=== PATIENT | male | born 1990 | race Caucasian/White ===

== ENCOUNTER 2019-09-16 17:45 | Emergency (ER) | payer OTHER ==
[2019-09-16] MEDS ORDERED: DIPHTH,PERTUSS(ACELL),TET 0.5 ML DISP.SYRIN IM ONE ×2 (18:02→19:38)
--- NOTE | 2019-09-16 18:02 | PDOC ---
Rapid Medical Evaluation Time Seen by Provider: 09/16/19 17:58 Medical Evaluation: 09/16/19 17:58 I have performed a brief in-person evaluation of this patient. The patient presents with a chief complaint of: L forearm laceration sustained with a saw 20 mns ago. Last tetanus status unknown Pertinent physical exam findings: Deep 7-8cm irregularly shaped laceration I have ordered the following: Tetanus vaccine The patient will proceed to the ED for further evaluation. Discharge Disposition - Diagnosis Laceration - Referrals - Patient Instructions - Post Discharge Activity
[2019-09-16 18:08] VITALS: BP 124/72; PULSE 87; TEMP 98.8; BMI 21.6
--- NOTE | 2019-09-16 18:33 | PDOC ---
History of Present Illness - General Chief Complaint: Laceration Stated Complaint: ARM LACERATION Time Seen by Provider: 09/16/19 17:58 - History of Present Illness Initial Comments: 09/16/19 18:32 CHIEF COMPLAINT: laceration HISTORY OF PRESENT ILLNESS: 29 yo M with no PMH presents to ED with laceration to L forearm. Patient reports he was using a saw to cut a small bojorquez and accidentally cut his arm. He is unsure when his last tetanus shot was. Patient is certain he received all his childhood vaccines as a child including entire Tdap series, but is uncertain when his most recent vaccination was. No recent travel or sick contacts. PAST MEDICAL HISTORY: Denies past medical history FAMILY HISTORY: Denies SOCIAL HISTORY: Denies tobacco, alcohol, illicit drug use. SURGICAL HISTORY: Denies ALLERGIES: No known drug allergies REVIEW OF SYSTEMS General/Constitutional: Denies fever or chills. Denies weakness, weight change. HEENT: Denies change in vision. Denies ear pain or discharge. Denies sore throat. Cardiovascular: Denies chest pain or shortness of breath. Respiratory: Denies cough, wheezing, or hemoptysis. Gastrointestinal: Denies nausea, vomiting, diarrhea or constipation. Denies rectal bleeding. Genitourinary: Denies dysuria, frequency, or change in urination. Musculoskeletal: Denies joint or muscle swelling or pain. Denies neck or back pain. Skin: Laceration to L forearm. Neurologic: Denies headache, vertigo, loss of consciousness, or loss of sensation. Psychiatric: Denies depression or anxiety. PHYSICAL EXAM General Appearance: Well-appearing, appropriately dressed. No apparent distress , no intoxication. HEENT: EOMI, PERRLA, normal ENT inspection, normal voice, TMs normal, pharynx normal. No conjunctival pallor. No photophobia, scleral icterus. Neck: Supple. Trachea midline. No tenderness, rigidity, carotid bruit, stridor , lymphadenopathy, or thyromegaly. Respiratory/Chest: Lungs CTAB. No shortness of breath, chest tenderness, respiratory distress, accessory muscle use. No crackles, rales, rhonchi, stridor , wheezing, dullness Cardiovascular: RRR. S1, S2. No JVD, murmur, bradycardia, tachycardia. Vascular Pulses: Dorsalis-Pedis (R): 2+, Dorsalis-Pedis (L): 2+ Gastrointestinal/Abdominal: Normal bowel sounds. Abdomen soft, non-distended. No tenderness or rebound tenderness. No organomegaly, pulsatile mass, guarding , hernia, hepatomegaly, splenomegaly. Lymphatic: No adenopathy, tenderness. Musculoskeletal/Extremities: 12 cm jagged laceration to L forearm deep to muscle. No tendon involvement. Neurovascularly intact, radial pulses 2+. Full ROM to wrist and fingers of L hand. FROM of all other extremities, normal capillary refill. Pelvis Stable. No CVA tenderness. No tenderness to extremities, pedal edema, swelling, erythema or deformity. Integumentary: Appropriate color, dry, warm. No cyanosis, erythema, jaundice or rash Neurologic: nuclear physician II-XII intact. Fully oriented, alert. Appropriate mood/affect. Motor strength 5/5. No appreciable EOM palsy, facial droop or sensory deficit. Past History - Past Medical History Allergies/Adverse Reactions: Allergies Allergy/AdvReac Type Severity Reaction Status Date / Time No Known Allergies Allergy Verified 09/16/19 17:58 Home Medications: Ambulatory Orders Cephalexin [Keflex] 500 mg PO BID #20 capsule 09/16/19 COPD: No - Psycho Social/Smoking Cessation Hx Smoking History: Never smoked *Physical Exam - Vital Signs Last Vital Signs Temp Pulse Resp BP Pulse Ox 98.8 F 87 18 124/72 97 09/16/19 17:59 09/16/19 17:59 09/16/19 17:59 09/16/19 17:59 09/16/19 17:59 Medical Decision Making - Medical Decision Making 09/16/19 19:19 29 yo M with no PMH presents to ED with laceration to L forearm. -tdap -keflex Lac repair performed by resident MD [facility]. Patient tolerated well. 09/16/19 19:47 Advised pt of post lac repair care instructions and of signs and symptoms for return to ER; patient verbalized understanding and agrees to plan. Discharge - Discharge Information Problems reviewed: Yes Clinical Impression/Diagnosis: Laceration Condition: Good Disposition: HOME - Admission No - Additional Discharge Information Prescriptions: Cephalexin [Keflex] 500 mg PO BID #20 capsule - Follow up/Referral - Patient Discharge Instructions Patient Printed Discharge Instructions: DI for Laceration Repair Additional Instructions: Please keep the area of your laceration clean and dry for the next 24 hours. Return in 10-14 days for suture removal. If you develop any redness, swelling, streaking, or warmth to the site of the wound, or you experience fever, chills, vomiting, or diarrhea, please return to the ER immediately. - Post Discharge Activity
== END 2019-09-16 19:55 | disposition home or self-care (01) ==
LOC: JER 17:45
PROC: 3E0234Z Introduction of Serum, Toxoid and Vaccine into Muscle, Percutaneous Approach (ICD-10-PCS; principal; 2019-09-16)
PROC: 0JQH0ZZ Repair Left Lower Arm Subcutaneous Tissue and Fascia, Open Approach (ICD-10-PCS; 2019-09-16)
DX: S51.812A Laceration without foreign body of left forearm, initial encounter (principal); W27.0XXA Contact with workbench tool, initial encounter; Y93.H2 Activity, gardening and landscaping; Y92.89 Other specified places as the place of occurrence of the external cause; Y99.8 Other external cause status
CPT/HCPCS: 12034; 90471; 90715; 99282-25

== ENCOUNTER 2024-03-18 10:08 | Emergency (ER) | payer OTHER ==
[2024-03-18 10:24] VITALS: RESP 18; BMI 23.3
[2024-03-18] MEDS: SODIUM CHLORIDE 0.9% 500 ML INFUS.BAG IV ONE (12:12)
[2024-03-18] MEDS ORDERED: AMPICILLIN NA/SULBACTAM NA 3 GM/100 ML BAG IVPB ONE (12:16)
[2024-03-18] MEDS: AMPICILLIN NA/SULBACTAM NA 3 GM in DEXTROSE 5%-WATER 100 ML IVPB ONE (12:21)
[2024-03-18 12:23] LABS: BASO % 0.4 % (0-2.0); EOS % 0.7 % (0-4.5); HEMATOCRIT 45.3 % (35.4-49); HEMOGLOBIN 15.7 GM/dL (11.7-16.9); LYMPH % 11.4 % (8-40); MCH 28.1 pg (25.7-33.7); MCHC 34.6 g/dl (32.0-35.9); MEAN CELL VOLUME 81.3 fl (80-96); MEAN PLT VOLUME 9.1 fl (7.5-11.1); MONO % 3.8 % (3.8-10.2); NEUT % 83.7 % (42.8-82.8); PLATELET COUNT 203 10^3/uL (134-434); RBC 5.58 M/mm3 (4.00-5.60); WHITE BLOOD COUNT 10.9 K/mm3 (4.0-10.0)
[2024-03-18] MEDS ORDERED: DIPHTH,PERTUSS(ACELL),TET 0.5 ML DISP.SYRIN IM ONE (12:28)
[2024-03-18] MEDS: DIPHTH,PERTUSS(ACELL),TET 0.5 ML DISP.SYRIN IM ONE (12:32)
[2024-03-18 12:39] LABS: POTASSIUM 4.3 mmol/L (3.5-5.1)
[2024-03-18 12:41] LABS: CALCIUM 8.8 mg/dL (8.5-10.1)
[2024-03-18 12:42] LABS: ALBUMIN 4.2 g/dl (3.4-5.0); BLOOD UREA NITROGEN 15.4 mg/dL (7-18)
[2024-03-18 12:45] LABS: CREATININE 0.7 mg/dL (0.55-1.3)
[2024-03-18 12:46] LABS: TOT PROT 7.5 g/dl (6.4-8.2)
[2024-03-18 12:47] LABS: BILIRUBIN,TOTAL 0.4 mg/dL (0.2-1)
[2024-03-18 13:28] VITALS: BP 128/77; PULSE 73; TEMP 98.4
== END 2024-03-18 13:55 | disposition short-term general hospital (02) ==
LOC: JERFT 10:08
PROC: 3E03329 Introduction of Other Anti-infective into Peripheral Vein, Percutaneous Approach (ICD-10-PCS; principal; 2024-03-18)
PROC: 3E0234Z Introduction of Serum, Toxoid and Vaccine into Muscle, Percutaneous Approach (ICD-10-PCS; 2024-03-18)
DX: S61.412A Laceration without foreign body of left hand, initial encounter (principal); W26.8XXA Contact with other sharp object(s), not elsewhere classified, initial encounter; Z20.822 Contact with and (suspected) exposure to COVID-19
CPT/HCPCS: 36415; 73130-TC-LT-FY; 80053; 85025; 87635; 90471; 90715; 96365; 99285-25